=== PATIENT | female | born 1990 | race Hispanic/Latino ===

== ENCOUNTER 2020-08-09 05:05 | Observation (INO) | payer BC, MEDICAID, OTHER ==
[~2020-08-09] VITALS: Ht 160 cm; Wt 112.5 kg
[~2020-08-09 05:05] MED LIST: INSU100V3 SQ; NPH,100V SQ; PREN-154 PO
[2020-08-09 05:37] LABS: BASOPHILS % (AUTO) 0.3 % (0.0-5.0); EOSINOPHILS % (AUTO) 0.4 % (0.0-8.0); HEMATOCRIT 39.9 % (36-48); LYMPHOCYTES % (AUTO) 8.1 % (21.0-51.0); MEAN CORPUSCULAR HEMOGLOBIN 27.3 pg (27.0-33.0); MEAN CORPUSCULAR HGB CONC 32.8 g/dL (32.0-36.0); MEAN CORPUSCULAR VOLUME 83.3 fL (79-99); MONOCYTES % (AUTO) 4.4 % (3.0-13.0); NEUTROPHILS % (AUTO) 86.5 % (40.0-77.0); PLATELET COUNT (AUTO) 295 K/uL (130-400); RED BLOOD CELL COUNT(AUTO) 4.79 MIL/uL (4.00-5.50); RED CELL DISTRIBUTION WIDTH 12.9 % (11.0-15.5); WHITE BLOOD COUNT (AUTO) 18.6 K/uL (4.8-10.8)
[2020-08-09 05:38] LABS: BILIRUBIN,URINE Negative (NEGATIVE); COLOR,URINE Red (YELLOW); GLUCOSE, URINE (UA) >=1000 mg/dL (NEGATIVE); KETONES,URINE 40 mg/dL (NEGATIVE); LEUKOCYTE ESTERASE ,URINE Moderate (NEGATIVE); NITRATE,URINE Negative (NEGATIVE); OCCULT BLOOD,URINE Large (NEGATIVE); PROTEIN,URINE Trace mg/dL (NEGATIVE); UROBILINOGEN,URINE 0.2 mg/dL (0.2-1.0)
[2020-08-09 05:40] LABS: APPEARANCE,URINE TURBID (CLEAR)
[2020-08-09 05:42] LABS: BACTERIA,URINE Few /HPF (None Seen); RBC,URINE TNTC /HPF (0-1); YEAST,URINE BUDDING Rare /HPF (None Seen)
[2020-08-09 05:43] LABS: MUCUS,URINE None Seen LPF (None Seen); SQUAMOUS EPITHELIAL CELL,UR None Seen /HPF (0-2)
[2020-08-09] MEDS ORDERED: CEFTRIAXONE SODIUM 1 GM ONE (05:46)
[2020-08-09] MEDS ORDERED: ACETAMINOPHEN EXTRA STRENGTH 500 MG TABLET ONE (06:06)
[2020-08-09] MEDS ORDERED: ONDANSETRON HCL 4 MG/2 ML VIAL ONE (06:06)
[2020-08-09 06:25] LABS: ALBUMIN 3.5 g/dL (3.5-5.0); BILIRUBIN,TOTAL 0.4 mg/dL (0.2-1.0); CREATININE 0.9 mg/dL (0.5-1.5)
[2020-08-09] MEDS ORDERED: LACTATED RINGERS 1000ML 1,000 ML IV ONE (07:34)
[2020-08-09 10:30] VITALS: BP 122/74
--- NOTE | 2020-08-09 11:25 | NUR ---
DR. PERRY CALLED AND NEW ORDERS GIVEN FOR CONTINUED CARE OF PATIENT. LR AT 100CC/HR; CBC IN A.M. BS Q6H AND SS#1. PATIENT IS TO REMAIN NPO. Addendum: 08/09/20 at 1710 by MELANIE LOPEZ RN FLEETS ENEMA TO BE GIVEN X ONCE FOR CONSTIPATION.
[2020-08-09] MEDS ORDERED: INSULIN HUMULIN R 100 UNIT/ML 3ML ONE (11:40)
[2020-08-09] MEDS: INSULIN HUMULIN R 100 UNIT/ML 3ML SQ SCH ×2 (12:00→18:00)
--- NOTE | 2020-08-09 13:00 | NUR ---
PATIENT WAS GIVEN A FLEETS ENEMA ORDERED BY DR. PERRY AND PATIENT STATES HAVING A LARGE BM BUT WAS ALL LIQUID, GREENISH IN COLOR. VOIDED ONLY 100CC.
--- NOTE | 2020-08-09 14:00 | NUR ---
PATIENT WAS ASSISTED UP TO BATHROOM AND VOIDED 1000CC OF BLOODY URINE AND HAS TWO SMALL CLOTS IN BOTTOM OF CONTAINER. PATIENT STATES FEELING BETTER AND HAVING LESS CRAMPING. STATES PREVIOUS CLOTS SHE HAD PASSED BEFORE COMING TO HOSPITAL WERE LARGER.
[2020-08-09] MEDS: LACTATED RINGERS 1000ML 1,000 ML IV SCH ×2 (16:00→17:15)
[2020-08-09 16:30] VITALS: BP 112/68
[2020-08-09] MEDS ORDERED: ACETAMINOPHEN 325 MG TAB PO PRN (17:00)
--- NOTE | 2020-08-09 18:00 | NUR ---
GLUCOSE CHECK DONE AND WAS 122, NO INSULIN COVERAGE REQUIRED.
[2020-08-09] MEDS ORDERED: METF-444 PO (18:58)
[2020-08-09] MEDS ORDERED: INSU300I SQ (18:58)
[2020-08-09 19:10] VITALS: BP 105/64
[2020-08-09] MEDS ORDERED: FLU VACC QS2020-21(6MOS UP)/PF 60 MCG/0.5 ML ML IM ONE (21:00)
[2020-08-09 23:14] VITALS: BP 119/60
[2020-08-10] MEDS: LACTATED RINGERS 1000ML 1,000 ML IV SCH ×2 (01:23→08:50)
[2020-08-10 03:09] VITALS: BP 88/46
[2020-08-10] MEDS: INSULIN HUMULIN R 100 UNIT/ML 3ML SQ SCH ×2 (06:00)
[2020-08-10 07:01] LABS: BASOPHILS % (AUTO) 0.3 % (0.0-5.0); EOSINOPHILS % (AUTO) 1.2 % (0.0-8.0); HEMATOCRIT 33.5 % (36-48); MEAN CORPUSCULAR HEMOGLOBIN 27.5 pg (27.0-33.0); MEAN CORPUSCULAR HGB CONC 32.5 g/dL (32.0-36.0); MEAN CORPUSCULAR VOLUME 84.6 fL (79-99); MONOCYTES % (AUTO) 6.1 % (3.0-13.0); NEUTROPHILS % (AUTO) 81.1 % (40.0-77.0); PLATELET COUNT (AUTO) 231 K/uL (130-400); RED BLOOD CELL COUNT(AUTO) 3.96 MIL/uL (4.00-5.50); RED CELL DISTRIBUTION WIDTH 13.3 % (11.0-15.5); WHITE BLOOD COUNT (AUTO) 9.8 K/uL (4.8-10.8)
[2020-08-10 07:18] LABS: CREATININE 0.7 mg/dL (0.5-1.5); POTASSIUM 4.1 mmol/L (3.5-5.1)
[2020-08-10 07:19] VITALS: BP 95/54
[2020-08-10 12:13] VITALS: BP 112/67
--- NOTE | 2020-08-10 15:05 | NUR ---
DISCHARGE PT LEFT UNIT VIA WHEELCHAIR, ACCOMPANIED BY SIGNIFICANT OTHER. DENIED PAIN AND HAD NO COMPLAINTS AT THIS TIME.
== END 2020-08-10 15:05 | disposition home or self-care (01) ==
LOC: EDH 05:05 → EDHIP 07:05 → WSH 10:25
PROVIDERS: ADMIT Obstetrics & Gynecology; ATTEND Obstetrics & Gynecology
DX: O23.42 Unspecified infection of urinary tract in pregnancy, second trimester (principal); Z20.828 Contact with and (suspected) exposure to other viral communicable diseases; O24.419 Gestational diabetes mellitus in pregnancy, unspecified control; R11.0 Nausea; R19.7 Diarrhea, unspecified; Z23 Encounter for immunization; Z3A.14 14 weeks gestation of pregnancy
CPT/HCPCS: 36415 ×2; 76705; 76801; 80048; 80053; 81001; 82948 ×5; 83690; 84702; 85025 ×2; 86850; 86900; 86901; 87077; 87088; 87186; 87426; 90471; 96360; 96361 ×2; 99284; G0378 ×18; J0696; J1815; J2405; J7120 ×2; Q2035; 90686

== ENCOUNTER 2021-03-06 06:08 | Day surgery (SDC) | payer BC, MEDICAID ==
[2021-03-04 11:57] LABS: BASOPHILS % (AUTO) 0.5 % (0.0-5.0); EOSINOPHILS % (AUTO) 2.4 % (0.0-8.0); HEMATOCRIT 38.3 % (36-48); MEAN CORPUSCULAR HGB CONC 32.9 g/dL (32.0-36.0); MEAN CORPUSCULAR VOLUME 82.2 fL (79-99); NEUTROPHILS % (AUTO) 68.8 % (40.0-77.0); PLATELET COUNT (AUTO) 295 K/uL (130-400); RED BLOOD CELL COUNT(AUTO) 4.66 MIL/uL (4.00-5.50); RED CELL DISTRIBUTION WIDTH 13.4 % (11.0-15.5); WHITE BLOOD COUNT (AUTO) 8.7 K/uL (4.8-10.8)
[~2021-03-06] VITALS: Ht 160 cm; Wt 114.0 kg
[~2021-03-06 06:08] MED LIST changes: +CEFAZOLIN 3GM /D5W 100ML 100 ML IV SCH; +INSREG SQ; -INSU100V3 SQ; +LACTATED RINGERS 1000ML 1,000 ML IV SCH; +METF-444 PO; -NPH,100V SQ; +NPH,100V11 SQ; +[UNRECOGNIZED DRUG - CODE] PO
[2021-03-06] MEDS ORDERED: SODIUM CHLORIDE 0.9% 1000ML 1,000 ML IV ONE (06:35)
[2021-03-06 06:40] VITALS: BP 120/76
[2021-03-06] MEDS ORDERED: CEFAZOLIN SODIUM 1 GM VIAL ONE (06:41)
[2021-03-06] MEDS ORDERED: MIDAZOLAM HCL 1 MG/ML 2ML VIAL ONE (07:38)
[2021-03-06] MEDS ORDERED: LIDOCAINE PF 2% 5ML ABBOJECT ONE (07:38)
[2021-03-06] MEDS ORDERED: DEXAMETHASONE SOD PHOSPHATE 10MG/ML 1ML VIAL ONE (07:38)
[2021-03-06] MEDS ORDERED: ONDANSETRON HCL 4 MG/2 ML VIAL ONE (07:39)
[2021-03-06] MEDS ORDERED: PROPOFOL 10 MG/ML 20ML VIAL IV ONE (07:39)
[2021-03-06] MEDS ORDERED: FENTANYL CITRATE PF 50 MCG/1 ML 2ML VIAL ONE ×3 (07:39→08:12)
[2021-03-06] MEDS ORDERED: MEPERIDINE-PF 50 MG/ML SYG ONE (07:40)
[2021-03-06] MEDS ORDERED: CEFAZOLIN SODIUM 1 GM VIAL IVP ONE (07:45)
[2021-03-06] MEDS ORDERED: METHYLERGONOVINE MALEATE 0.2 MG/1 ML ML ONE (08:19)
[2021-03-06] MEDS ORDERED: OXYTOCIN 10 USP UNITS/ML ONE ×2 (08:20→08:36)
[2021-03-06] MEDS ORDERED: METHYLERGONOVINE MALEATE 0.2 MG/1 ML ML IM ONE (08:22)
[2021-03-06] MEDS ORDERED: FENTANYL CITRATE PF 50 MCG/1 ML 5ML AMP IV ONE (08:35)
[2021-03-06] MEDS ORDERED: METHYLERGONOVINE MALEATE 0.2 MG/1 ML ML IM SCH (09:00)
[2021-03-06 09:58] LABS: HEMATOCRIT 36.2 % (36-48); MEAN CORPUSCULAR HEMOGLOBIN 27.4 pg (27.0-33.0); MEAN CORPUSCULAR HGB CONC 32.6 g/dL (32.0-36.0); RED BLOOD CELL COUNT(AUTO) 4.31 MIL/uL (4.00-5.50); WHITE BLOOD COUNT (AUTO) 10.6 K/uL (4.8-10.8)
[2021-03-06 10:40] VITALS: BP 105/45
[2021-03-06 10:55] VITALS: BP 123/80
[2021-03-06 11:10] VITALS: BP 122/81
== END 2021-03-06 11:20 | disposition home or self-care (01) ==
LOC: DAH 06:08
PROVIDERS: ATTEND Obstetrics & Gynecology
DX: O02.1 Missed abortion (principal); Z20.822 Contact with and (suspected) exposure to COVID-19; D25.9 Leiomyoma of uterus, unspecified; E66.01 Morbid (severe) obesity due to excess calories; E11.9 Type 2 diabetes mellitus without complications; Z98.891 History of uterine scar from previous surgery; Z79.4 Long term (current) use of insulin
CPT/HCPCS: 36415 ×2; 59821; 76801; 82948 ×2; 84703; 85025; 85027; 86850; 86900; 86901; A4215; A4221; A4222; A4223; A4510; A4600; A4663; C9803; J0690 ×2; J1100; J2001; J2175; J2210 ×3; J2250; J2405; J2590 ×2; J2704; J3010 ×4; J7030; J7120; U0003

== ENCOUNTER → 2021-06-20 | Outpatient (CLI) | payer BC, MEDICAID ==
[~2021-06-20] MED LIST changes: -CEFAZOLIN 3GM /D5W 100ML 100 ML IV SCH; -LACTATED RINGERS 1000ML 1,000 ML IV SCH
== END | disposition home or self-care (01) ==
LOC: RAH 13:13
PROVIDERS: ATTEND Internal Medicine
DX: R10.9 Unspecified abdominal pain (principal)
CPT/HCPCS: 74021

== ENCOUNTER → 2021-06-25 | Outpatient (CLI) | payer BC, MEDICAID | END | disposition home or self-care (01) | LOC: RAH 11:29 | PROVIDERS: ATTEND Internal Medicine | DX: R31.9 Hematuria, unspecified (principal) | CPT/HCPCS: 76770 ==

== ENCOUNTER 2022-03-02 16:11 | Observation (INO) | payer BC, MEDICAID ==
[~2022-03-02] VITALS: Ht 160 cm; Wt 118.8 kg
[2022-03-02 16:12] VITALS: BP 99/54
[2022-03-02 16:57] LABS: APPEARANCE,URINE Clear (CLEAR); BILIRUBIN,URINE Negative (NEGATIVE); COLOR,URINE Yellow (YELLOW); GLUCOSE, URINE (UA) >=1000 mg/dL (NEGATIVE); KETONES,URINE Trace mg/dL (NEGATIVE); LEUKOCYTE ESTERASE ,URINE Small (NEGATIVE); NITRATE,URINE Negative (NEGATIVE); OCCULT BLOOD,URINE Negative (NEGATIVE); PH,URINE 6.5 (5.0-8.0); PROTEIN,URINE Negative (NEGATIVE); UROBILINOGEN,URINE 0.2 mg/dL (0.2-1.0)
[2022-03-02 17:03] LABS: BACTERIA,URINE Few /HPF (None Seen); RBC,URINE 0-1 /HPF (0-1); SQUAMOUS EPITHELIAL CELL,UR Moderate /HPF (0-2)
== END 2022-03-02 18:15 | disposition home or self-care (01) ==
LOC: EDH 16:11 → LDH 16:12
PROVIDERS: ADMIT Obstetrics & Gynecology; ATTEND Obstetrics & Gynecology
DX: O26.893 Other specified pregnancy related conditions, third trimester (principal); R10.2 Pelvic and perineal pain; Z3A.32 32 weeks gestation of pregnancy
CPT/HCPCS: 81001; 87088; G0378; G0379